=== PATIENT | male | born 1990 ===

== ENCOUNTER 2025-04-25 02:26 | Emergency (ER) | payer BC ==
[~2025-04-25] VITALS: Ht 172.7 cm; Wt 61.2 kg
[2025-04-25 02:39] VITALS: BP 139/97
[2025-04-25] MEDS ORDERED: CODACE30 PO (06:10)
[2025-04-25] MEDS ORDERED: PENVK500 PO (06:10)
[2025-04-25] MEDS ORDERED: RX Prepack 2 Tabs Ondansetron ODT 4MG UD ONE (06:15)
[2025-04-25] MEDS ORDERED: RX Prepack 6 Tabs Oxycodone 5mg UD ONE (06:15)
== END 2025-04-25 06:21 | disposition home or self-care (01) ==
LOC: ER 02:26
DX: K02.9 Dental caries, unspecified (principal); K08.89 Other specified disorders of teeth and supporting structures
CPT/HCPCS: 99282; A9270